=== PATIENT | female | born 1935 | race Caucasian/White ===

== ENCOUNTER 2024-04-09 22:17 | Observation (INO) | payer MEDICARE, SELFPAY ==
--- NOTE | ~2024-04-09 | MR_ITS ---
EXAMINATION: MR brain/brain stem wo/w con DATE: 04/10/2024 11:37 INDICATION: Altered mental status TECHNIQUE: Magnetic resonance imaging (MRI) of the brain and brainstem was performed without intraven ous contrast. Sequences included sagittal and axial T1-weighted SE, axial diffusion-weighted FS SE, a xial T2*-weighted GRE, axial T2-weighted FLAIR Propeller, and axial T2-weighted Propeller. Apparent d iffusion coefficient (ADC) maps were created. 13 cc MultiHance administered intravenously. COMPARISON: CT dated 04/10/2024. FINDINGS: Mild generalized atrophy. There are scattered mild periventricular and subcortical white ma tter changes, most likely related to small vessel ischemic disease (microangiopathy). No abnormal con trast enhancement. No ventriculomegaly or midline shift. No acute infarction, hemorrhage, mass or mas s effect. Structures of the posterior fossa including 7/8th cranial nerve complexes are normal. 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 Orbits are symmetric without disconjugate gaze. Paranasa l sinuses are unremarkable. Midline sagittal images demonstrate a normal corpus callosum and craniove rtebral junction. No abnormality of the sella turcica. IMPRESSION: 1. No acute intracranial abnormality. 2: Chronic age-related findings. Reviewed, dictated and finalized at location B.
--- NOTE | ~2024-04-09 | CT_ITS ---
EXAMINATION: CT brain wo con DATE: 04/10/2024 01:04 INDICATION: Altered mental status TECHNIQUE: Computed tomography (CT) of the head was performed without intravenous contrast. The dose- length product was 756.67 mGy-cm. Automated exposure control and iterative reconstruction technique were employed. COMPARISON: None FINDINGS: Generalized atrophy. No ventriculomegaly or midline shift. Basilar cisterns are patent. Nor mal conde-white differentiation. No acute intracranial hemorrhage, infarction, mass or mass effect. Th ere are scattered mild periventricular and subcortical white matter changes, most likely related to s mall vessel ischemic disease (microangiopathy). No depressed skull fractures. Paranasal sinuses and m astoids are pneumatized. IMPRESSION: 1. No acute intracranial abnormality. Reviewed, dictated and finalized at location B.
[2024-04-09 22:34] VITALS: PULSE 92; RESP 20; TEMP 36.6; O2SAT 99
--- NOTE | 2024-04-09 22:47 | ECG_ITS ---
Test Date: 2024-04-09 22:44:01 Measurements Intervals [place] Rate: 79 P: 52 MT: 142 QRS: 28 QRSD: 101 T: 45 QT: 378 QTc: 435 Interpretive Statements SINUS RHYTHM SUPRAVENTRICULAR BIGEMINY BORDERLINE ST ABNORMALITY- LATERAL LEADS BASELINE ARTIFACT- I, II, III, AVR, AVL, AVF, V1-V6 ABNORMAL ECG No previous ECG available for comparison Electronically Signed On 04-13-2024 14:41:19 CDT by Cm Flores D.O.
[2024-04-09 22:49] VITALS: BP 200/69
--- NOTE | 2024-04-09 22:54 | PC.NURSE ---
Damian - Betina Rhoades
[2024-04-09 23:00] LABS: Basophils Percent Auto 0.5 % (0.2-1.2); Eosinophils Absolute Auto 0.1 K/mm3 (0-0.3); Eosinophils Percent Auto 0.8 % (0-4.4); Hematocrit 37.5 % (37.0-47.0); Immature Granulocyte Absolute 0.04 K/mm3 (0.00-0.031); Immature Granulocyte Percent A 0.5 % (0-0.5); Lymphocytes Absolute Auto 1.17 K/mm3 (0.9-3.2); Lymphocytes Percent Auto 13.7 % (18.3-44.2); Mean Corpuscular HGB Conc 34.7 g/dl (32-36); Mean Corpuscular Hemoglobin 32.2 pg (26-34); Mean Corpuscular Volume 92.8 fl (80-100); Mean Platelet Volume 8.6 fl (7.4-10.4); Monocytes Absolute Auto 0.7 K/mm3 (0.1-0.6); Monocytes Percent Auto 8.2 % (2.6-8.5); Neutrophils Absolute Auto 6.5 K/mm3 (1.3-6.7); Neutrophils Percent Auto 76.3 % (45.5-73.1); Platelet Count Result 304 k/mm3 (150-375); Red Blood Count 4.04 M/mm3 (4.2-5.4); Red Cell Distribution Width 13.1 % (11.5-14.5); White Blood Count 8.5 K/mm3 (4.5-10.0)
[2024-04-09 23:09] LABS: Alanine Aminotransferase 21 U/L (6-35); Albumin Level 4.7 g/dL (3.5-5.1); Alkaline Phosphatase 85 U/L (38-126); Anion Gap 11 mmol/L (4-12); Aspartate Amino Transferase 42 U/L (14-36); Bilirubin,Total 0.5 mg/dL (0.2-1.3); Blood Urea Nitrogen 27 mg/dL (7-17); Calcium 9.8 mg/dL (8.4-10.2); Carbon Dioxide 23 mmol/L (22-30); Chloride 95 mmol/L (98-107); Estimated CRCL calculation 34 ml/min; Estimated Glomerular Filt Rate 59; Glucose 129 mg/dL (65-110); Sodium 129 mmol/L (137-145)
[2024-04-09 23:10] LABS: INR 0.9; Prothrombin Time 12.7 Seconds (11.1-14.7)
[2024-04-09 23:44] LABS: Appearance Urine Clear (Clear); Bilirubin Urine Negative (Negative); Blood Urine Negative (Negative); Color Urine Yellow (Yellow); Glucose Urine UA Negative (Negative); Ketones Urine Negative (Negative); Leukocyte Esterase Ur Negative LEU/UL (Negative); Nitrate Urine Negative (Negative); Protein Urine Negative (Negative); Urobilinogen Urine 0.2 mg/dL (<2.0)
--- NOTE | 2024-04-09 23:59 | ED.AMS ---
HPI - Altered Mental Status General Chief Complaint: Altered Mental Status Stated Complaint: AMS Time Seen by Provider: 04/09/24 23:28 Source: patient and EMS Mode of arrival: EMS Limitations: altered mental status History of Present Illness HPI narrative: This is a 88 year old female that presents to the ER for altered mental status. Patient was reportedly driving in circles around [place]. She was supposed to be driving to [place] to visit her daughter. Was eventually pulled over by police. She was pressing the off button to her car instead of the blinker. She also tried putting in her phone code and got it wrong so many times that she was locked out of her phone for an hour. Patient has no complaints currently. Reports a similar occurrence recently and she was treated for a UTI. Review of Systems Review of Systems: ROS unobtainable: Yes unobtainable due to mental status PMFSH Past Medical History Medical History (Updated 04/10/24 @ 03:34 by Idania Hurt PA-C) History of lupus Social History Social History (Updated 04/10/24 @ 00:57 by Idania Hurt PA-C) Smoking status: Never smoker Exam Narrative: GENERAL: Elderly, well-nourished, and in no acute distress. HEAD: Normocephalic, atraumatic. EYES: PERRLA and EOMI. ENT: Nares clear, no rhinorrhea or epistaxis. Mucous membranes moist. Oropharynx without tonsillar hypertrophy exudate or other lesions. Bilateral TMs pearly conde non-bulging NECK: Supple. No adenopathy or masses. No JVD CHEST: Clear to auscultation. No respiratory distress. No wheezes rales or rhonchi HEART: Regular rate and rhythm. No murmur heard. Normal peripheral pulses. EXTREMITIES: Normal range of motion. No edema. Strength equal in bilateral upper and lower extremities (5/5) SKIN: Warm, dry, no rash. NEURO: No focal deficits. Alert and oriented x3. Cranial nerves 2-12 grossly intact PSYCH: Normal mood and affect Course Course Emergency Course: Patient updated on her workup and recommendation for admission Consultations Consultation #1: Spoke with hospitalist about patient and workup who accepts admission. Will order MRI Date: 04/10/24 Vital Signs Vital signs: Vital Signs Temperature 97.9 F 04/09/24 22:34 Pulse Rate 92 04/09/24 22:34 Respiratory Rate 20 04/09/24 22:34 Pulse Oximetry 99 04/09/24 22:34 Oxygen Delivery Room Air 04/09/24 22:34 Temperature 97.9 F 04/09/24 22:34 Pulse Rate 92 04/09/24 22:34 Respiratory Rate 20 04/09/24 22:34 Blood Pressure 200/69 H 04/09/24 22:49 Pulse Oximetry 99 04/09/24 22:34 Oxygen Delivery Room Air 04/09/24 22:50 MDM - Altered Mental Status MDM Narrative Medical decision making narrative: Patient presents to the ER for confusion. Patient was meant to be driving to [place] to visit her daughter was pulled over by [place] police department as she was driving very erratically. Blood pressure elevated at 200 upon arrival. This down-trended without intervention. Blood pressure now 170s-180s systolic. Other vitals are stable. No focal deficits noted on exam. CBC without concerning findings. Metabolic panel with hyponatremia with sodium of 129. Patient does report this is chronic for her. Urine without evidence of infection. CT brain without acute findings. Patient updated on her workup and recommendation for admission. Spoke with hospitalist about patient and workup who accepts admission. Will order MRI Differential Diagnosis Differential diagnosis: Likely altered mental status, delirium, dementia and other (UTI, dehydration) Lab Data Attestation: I reviewed the patient's lab results. 04/09/24 22:52 04/09/24 22:52 Labs: Lab Results 04/09/24 04/09/24 04/09/24 Range/Units 22:52 22:54 23:38 WBC 8.5 (4.5-10.0) K/mm3 RBC 4.04 L (4.2-5.4) M/mm3 Hgb 13.0 (12.0-15.0) g/dL Hct 37.5 (37.0-47.0) % MCV 92.8 (80-100) fl MCH 32.2 (26-34) pg
[2024-04-10] VITALS (36 sets, daily range): BP systolic 152–212; BP diastolic 46–153; PULSE 56–88; RESP 10–20; TEMP 36–36.4; O2SAT 89–100
[2024-04-10 00:01] LABS: Add Urine Microscopic? NO
--- NOTE | 2024-04-10 01:16 | PC.NURSE ---
pt asked if we could contact [facility] and see if they would cancel her room. per pt request this rn did notify the hotel of pt being here and she would call once discharged.
[2024-04-10] MEDS: SODIUM CHLORIDE 0.9% IV 500 ML 999 ML IV CONT (01:30)
[2024-04-10 02:54] LABS: Ethanol < 10 mg/dL (<10)
[2024-04-10 02:56] LABS: Amphetamine Screen Urine Negative (Negative); Barbiturate Screen Urine Negative (Negative); Benzodiazepines Screen Urine Negative (Negative); Cannabinoid Screen Urine Negative (Negative); Cocaine Screen Urine Negative (Negative); Methadone Screen Urine Negative (Negative); Opiate Screen Urine Negative (Negative); Phencyclidine Screen Urine Negative (Negative)
--- NOTE | 2024-04-10 06:01 | ADMGEN ---
This patient, Kimi Avendaño, was admitted to [facility] Surg Room 304-02. Patient/family oriented to hospital policies and general routines including ID bracelet, bed and alarms, visiting hours, pain management, procedures, bathroom and other care routines, personal items, smoking policy, room service/diet, and visiting hours. Information on how to activate the Rapid Response Team has been discussed. Patient/Family are encouraged to report perceived risks to care and to ask questions if they do not understand what they are told or what they should do.
[2024-04-10] MEDS: METOPROLOL TARTRATE INJ 5 MG/5 ML VIAL IV PUSH ×2 (06:33→10:26)
[2024-04-10 08:00] LABS: Hematocrit 36.1 % (37.0-47.0); Hemoglobin 12.3 g/dL (12.0-15.0); Mean Corpuscular HGB Conc 34.1 g/dl (32-36); Mean Corpuscular Hemoglobin 31.6 pg (26-34); Mean Corpuscular Volume 92.8 fl (80-100); Mean Platelet Volume 8.4 fl (7.4-10.4); Platelet Count Result 294 k/mm3 (150-375); Red Blood Count 3.89 M/mm3 (4.2-5.4); Red Cell Distribution Width 13.2 % (11.5-14.5); White Blood Count 6.8 K/mm3 (4.5-10.0)
[2024-04-10 08:12] LABS: Anion Gap 8 mmol/L (4-12); Blood Urea Nitrogen 20 mg/dL (7-17); Calcium 9.3 mg/dL (8.4-10.2); Carbon Dioxide 27 mmol/L (22-30); Chloride 99 mmol/L (98-107); Estimated CRCL calculation 49 ml/min; Estimated Glomerular Filt Rate > 60; Glucose 108 mg/dL (65-110); Potassium 4.4 mmol/L (3.4-5.0); Sodium 134 mmol/L (137-145)
--- NOTE | 2024-04-10 09:25 | PM.IMHP ---
H&P: HPI History of Present Illness Date/Time: 04/10/24 09:25 Chief Complaint: Confusion Narrative: Kimi Avendaño is an 88-year-old female with a history of lupus, hyponatremia, CAD, colitis, recent right hip replacement 6 months prior who presented to the emergency department on 04/09/2024 accompanied by police department due to altered mental status. The patient lives in [place], [place] and was driving to [place], [place] as a stop over on her way to [place], [place] to visit her daughter. Patient states that her 3 daughters both were hesitant about having her make the drive, though she just saw her primary care provider 4 days prior and was told she was the healthiest patient for her age and there was no reason she could not drive. At some point in her drive, her GPS stopped working which may have been related to the [employer] outage that occurred on 04/09/2024. She then could not really get her phone to work at all and was having troubles with her turn signal. She pulled over at a rest stop in [place] at which time a rest stop attendant called police for assistance. Apparently every time the patient was trying to use her blinker, she was actually turning her car off by hitting the off button. She also apparently input her phone password incorrectly so many times that she was locked out for 1 hour. The patient admits to being ?totally confused but believes her troubles were due to car issues and not user error. She reports that she had a UTI about 1 month ago for which she completed an unknown antibiotic and had complete resolution of her symptoms. She did not have any urinary symptoms at that time but did have confusion which she states promptly resolved with treatment. At the time of my evaluation today, she admits to being confused. She denies forgetfulness or other memory issues. She does complain of a headache. She denies nausea, vomiting, fever, chills, abdominal pain, chest pain, palpitations, shortness of breath. Denies dysuria or hematuria. She does endorse dizziness and lightheadedness upon standing. She lives at home and is independent in her daily living. She has been using a cane for the past 6 months since her hip replacement. She knows that her blood pressure often runs high and she states she has white coat syndrome, therefore monitors her blood pressure at home and states that is typically well controlled. She also admits that she has had issues with low sodium in the past and knows that her sodium levels on admission were low. She is slightly off topic during exam and when she was trying to show me her phone, she handed me her tele box. She denies any history of drug use or alcohol use. She states her daughter is on her way from [place] to see her. She did give me permission to contact her daughter for further information, though she did not know her phone number. RN at bedside provided number, though I was unable to reach her daughter, Nadja, and left a voicemail. The patient does have a quite detailed typed report of her medical history with her and some information is supplemented from this. ER evaluation: On arrival, BP elevated to 200/69, additional vital signs stable, afebrile, white blood cell count 8.5, hemoglobin 13, sodium slightly decreased at 129, creatinine 0.9, electrolytes within normal limits, lactic acid 1.0, UA completely unremarkable, urine drug screen negative, ethyl alcohol <10. Head CT within normal limits. Blood pressure trended down to 170 systolic without intervention. Noted to have no focal neurologic deficits on exam. Review of Systems Review of Systems: All systems reviewed & are unremarkable except as noted in HPI and below PMFSH Past Medical History Medical History (Updated 04/10/24 @ 09:45 by Ioana Walters PA-C) History of lupus History of myocardial infarction History of pericarditis History of shingles Surgical History Surgical History (Updated 04/10/24 @
[2024-04-10] MEDS: CHOLECALCIFEROL 5,000 UNITS TABLET 10000 UNITS PO (10:25)
[2024-04-10] MEDS: OMEGA 3 POLYUNSAT FATTY ACIDS 1 GM CAP PO (10:25)
[2024-04-10] MEDS: ASCORBIC ACID 500 MG TABLET 1000 MG PO (10:26)
[2024-04-10] MEDS: ZINC SULFATE 220 MG CAPSULE PO (10:26)
[2024-04-10] MEDS: VITAMIN B COMPLEX CAPSULE 1 CAP PO (10:26)
[2024-04-10 10:33] LABS: Ammonia < 9 umol/L (9-30)
--- NOTE | 2024-04-10 10:54 | PC.NURSE ---
Patient's watch, necklace, and wedding ring placed in a cup labeled with patient sticker. Placed at bedside in patient's belongings bag per patient request.
[2024-04-10 11:16] LABS: Thyroid Stimulating Hormone Reflex 0.928 uIU/mL (0.465-4.68)
[2024-04-10 12:00] LABS: Folic Acid > 20.0 ng/mL (2.76->20); Vitamin B12 > 1000.0 pg/mL (239-931)
[2024-04-10] MEDS: hydrALAZINE HCL 20 MG/ML VIAL 10 MG IV PUSH (17:09)
--- NOTE | 2024-04-10 18:18 | WPDNEURCNPN ---
Assessment and Plan Assessment and plan (1) Minimal cognitive impairment: Code(s): G31.84 - Mild cognitive impairment of uncertain or unknown etiology Status: Acute Assessment and Plan: it is difficult to draw any definitive conclusions based upon a single examination such as this. MRI of the brain and serum B12 and folate and other lab data were within normal limits. Urine examination did not show any abnormalities. She told me she has had a urinary tract infection a month ago and she was confused. She has had episodes of low serum sodium in the past. She seems to very health conscious and used to run marathons at 1 time. Plan the patient seems to be stable from neurologic point of view at this time. If her family members accompany her and drive her around till they feel secure and thereafter have her follow up with Neurology in her local area in 2-3 weeks time and thereafter. Equally to see if she is developing any underlying dementia may be beneficial. T Consult date: 04/10/24 HPI: Kimi Avendaño is a 88 year old female Brought to the hospital by police from a nearby service area because he was confused and to she was using her car on oxygen place of the single. She was traveling from [facility] to her daughter in [place]. She has 3 daughters. She states that she has a 15 or so grandchildren. She used to run a marathon and has been in good health. She takes her vitamins. In the past she has had low serum sodium. She was admitted to hospital month ago because he got confused and was found to have urinary tract infection. She has not had any problems thereafter. She does live by herself and manages her own affairs fairly well. Here in the hospital her behavior has been found to be fair and no additional new Symptoms have been reported. The no prior history of stroke or head trauma or febrile illness in the past week or so. Review of Systems Review of Systems: The patient states that she has been on steroids on and off because of lupus. She was on steroid for almost a year at 1 time. However she is not on any steroid or any other medication for lupus at this time. All systems reviewed & are unremarkable except as noted in HPI and below PMFSH Past Medical History Medical History (Updated 04/10/24 @ 18:24 by Babatunde Toro MD) History of lupus History of myocardial infarction History of pericarditis History of shingles Minimal cognitive impairment Surgical History Surgical History H/O cataract removal with insertion of prosthetic lens (~2006) H/O cervical discectomy (~1979) H/O repair of right rotator cuff (~2011) History of appendectomy (~1960) History of cholecystectomy (~1999) History of hysterectomy for benign disease (~1960) Secondary to endometriosis History of inguinal herniorrhaphy (~1959) History of right hip replacement (~2022) Family History Family History Father Stomach ulcer Tuberculosis Mother Hypertension Glaucoma Daughter Hypertension Social History Social History Social History: Patient lives at home independently in [place], [place]. Uses a cane for ambulation. She is a never smoker/drinker and no history of drug use. Her daughter Nadja is her surrogate decision maker. She is a full code. Smoking status: Never smoker Second hand tobacco smoke exposure: Yes (as a child) Alcohol intake: never Substance use: never Substance use type: does not use Do You Feel Safe in your Home?: Yes Lack of Transportation: No Lack of Food: Never True Current Housing: I Have Housing Concerned About Future Housing: No Difficulty Paying Gas/Electric Bills: No Difficulty Paying for Meds: No Currently Unemployed: No Education: Bachelor's Degree Difficulty w/ Childcare or F
[2024-04-11] VITALS: PULSE 62
[2024-04-11 04:00] VITALS: BP 125/52; PULSE 58; PULSE 61; RESP 16; TEMP 36.2; O2SAT 99
[2024-04-11 07:29] LABS: Hematocrit 34.9 % (37.0-47.0); Hemoglobin 11.7 g/dL (12.0-15.0); Mean Corpuscular HGB Conc 33.5 g/dl (32-36); Mean Corpuscular Hemoglobin 31.3 pg (26-34); Mean Corpuscular Volume 93.3 fl (80-100); Mean Platelet Volume 8.9 fl (7.4-10.4); Platelet Count Result 312 k/mm3 (150-375); Red Blood Count 3.74 M/mm3 (4.2-5.4); Red Cell Distribution Width 13.2 % (11.5-14.5); White Blood Count 6.4 K/mm3 (4.5-10.0)
[2024-04-11 07:56] LABS: Alanine Aminotransferase 18 U/L (6-35); Albumin Level 3.8 g/dL (3.5-5.1); Alkaline Phosphatase 61 U/L (38-126); Anion Gap 6 mmol/L (4-12); Aspartate Amino Transferase 34 U/L (14-36); Blood Urea Nitrogen 17 mg/dL (7-17); Calcium 9.1 mg/dL (8.4-10.2); Carbon Dioxide 26 mmol/L (22-30); Chloride 101 mmol/L (98-107); Estimated CRCL calculation 43 ml/min; Estimated Glomerular Filt Rate > 60; Glucose 89 mg/dL (65-110); Potassium 3.9 mmol/L (3.4-5.0); Sodium 133 mmol/L (137-145)
[2024-04-11 08:01] VITALS: PULSE 66; RESP 20; O2SAT 99
[2024-04-11] MEDS: ASCORBIC ACID 500 MG TABLET 1000 MG PO (09:27)
[2024-04-11] MEDS: VITAMIN B COMPLEX CAPSULE 1 CAP PO (09:27)
[2024-04-11] MEDS: ZINC SULFATE 220 MG CAPSULE PO (09:27)
[2024-04-11] MEDS: CHOLECALCIFEROL 5,000 UNITS TABLET 10000 UNITS PO (09:27)
[2024-04-11] MEDS: OMEGA 3 POLYUNSAT FATTY ACIDS 1 GM CAP PO (09:27)
[2024-04-11 12:00] VITALS: BP 124/47; PULSE 75; RESP 18; TEMP 35.9; O2SAT 100
--- NOTE | 2024-04-11 13:52 | PM.IMPN ---
Progress Note: A&P Assessment and Plan (1) Altered mental status: Qualifiers: Altered mental status type: unspecified Qualified Code(s): R41.82 - Altered mental status, unspecified Code(s): R41.82 - Altered mental status, unspecified Status: Acute Assessment and Plan: Acute mental status change. Found to be driving erratically and had some confusion of events leading up to hospitalization. Head CT & MRI with no acute findings, though MRI brain did show an old cerebellar infarct. Laboratory workup unrevealing. UA without concerns for infection. Urine drug screen and ethyl alcohol levels negative. Neurologic exam unremarkable Awaiting brain MRI. --Neurology consulted, appreciate recommendations -- TSH, B12, folate, ammonia all normal (2) Hypertension: Code(s): I10 - Essential (primary) hypertension Status: Acute Assessment and Plan: BP markedly elevated on arrival up to 212/72. Yesterday blood pressure fluctuated from 170-210. Only received one dose of IV metoprolol. Patient reported having a headache yesterday. Continue to monitor BP trends closely. Was started on metoprolol 5 mg q4h IV prn --BP 124/52 at 4am, 124/47 at noon. --patient also reports acute elevation of blood pressure during event a month ago during episode of confusion, though records are not available --Ptatient reports that she has had trouble tolerating multiple medications for blood pressure (beta myron due to low heart rate, HCTZ due to low sodium). Blood pressure currently controlled. Follow up with PCP. Recommended frequent blood pressure checks at home until follow up with PCP (3) Hyponatremia: Code(s): E87.1 - Hypo-osmolality and hyponatremia Status: Acute Assessment and Plan: Sodium levels low on arrival at 129. Likely due to dehydration. Received 1 L of IV fluids in the ER. Sodium now improved, 134 today. 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 Family coming to pick her up this afternoon. --Start ASA given old infarct on brain MRI, also hx HI per patient --Defer statin to PCP --Blood pressure normalized. Unclear cause of blood pressure elevations, possible stress induced. Patient will check blood pressures at home. Consider a PRN med or further workup. She reported she had a headache but does not have sweats or palpitations with this episodes. Tele showed irregular rate, atrial arrhythmia, but not afib. Per patient she has been told she has had aflutter previously but not aflutter currently. --Follow up with PCP, outpatient neurology in 2-3 weeks Time Spent With Patient Time: 75 minutes. Saw patient twice Subjective Date/time seen: 04/11/24 13:52 Interval history: Feeling better today. Alert and oriented x4, back to baseline. Knitting. Reports some chronic problems with balance, patient thinks may have started about 4 years ago. MRI showed an old cerebellar infarct, patient unaware of that finding Review of Systems Review of Systems: Had a headache yesterday, resolved. No headache today. All systems reviewed & are unremarkable except as noted in HPI and below Exam Narrative: General: Well-nourished, well-appearing 88-year-old female, sitting up in bed, comfortable, NARD Neuro: awake, alert and oriented x3, speech clear, CN II-XII intact, strength 5/5 throughout, sensation intact, no pronator drift, bilateral engineering mgr strength equal, able to perform rapid alternating movements, though has some difficulty with following
--- NOTE | 2024-04-11 14:25 | PM.DS ---
DS: Admitting Diagnosis Discharge Date 04/11/24 Admitting Diagnosis Altered Mental Status Hypertensive urgency DS: Discharge Diagnosis Discharge Diagnosis (1) Altered mental status: Qualifiers: Altered mental status type: unspecified Qualified Code(s): R41.82 - Altered mental status, unspecified Code(s): R41.82 - Altered mental status, unspecified Status: Acute (2) Hypertensive urgency, malignant: Code(s): I16.0 - Hypertensive urgency Status: Acute Plan Follow up with PCP, Neurology. Started aspirin. Needs close follow up for blood pressures. Check sodium in 1-2 weeks DS: Summary Hospital Course Reason for hospitalization: Patient was admitted for evaluation of altered mental status Hospital Course: Altered mental status type. Acute change. Found to be driving erratically and had some confusion of events leading up to hospitalization. Head CT & MRI with no acute findings, though MRI brain did show an old cerebellar infarct. At risk for PRES given elevated blood pressures and lupus cerebritis with hx of lupus but mental status normalized quickly and no imaging findings. Laboratory workup unrevealing, sodium slightly low, BUN slightly high. UA without concerns for infection. Urine drug screen and ethyl alcohol levels negative. Neurologic exam unremarkable. Neurology consulted, appreciate recommendations. TSH, B12, folate, ammonia all normal. Unclear cause of acute change in mental status but patient noted that blood pressure was very elevated during her prior admission as well and she had no urinary symptoms so may have been asymptomatic bacteriuria? Records are not available. Patient will follow up with her PCP. Neurology saw during admission and recommended outpatient neurology follow up. Neurology note 04/10: The patient seems to be stable from neurologic point of view at this time. If her family members accompany her and drive her around till they feel secure and thereafter have her follow up with Neurology in her local area in 2-3 weeks time and thereafter. Equally to see if she is developing any underlying dementia may be beneficial. Hypertension: BP markedly elevated on arrival up to 212/72. Yesterday blood pressure fluctuated from 170-210. Only received one dose of IV metoprolol. Patient reported having a headache and treated for hypertensive urgency given altered mental status. Received 1 dose of IV metoprolol 5 mg and blood pressure improved. Did not need a second dose. Given intermittent blood pressure elevations, consider alternate causes if not already done. Though patient does not have classic symptoms of pheochromocytoma. No palpitations or sweating/flushing episodes. Day of discharge Blood pressure 124/52 at 4am, 124/47 at noon. Prior dose of IV metoprolol was 10 am the day before. She also reported acute elevation of blood pressure during event a month ago during episode of confusion, though records are not available. She reported difficulty tolerating multiple medications for blood pressure (beta myron due to low heart rate, HCTZ due to low sodium). Blood pressure currently controlled. Follow up with PCP. Recommended frequent blood pressure checks at home until follow up with PCP. Consider PRN medication. Intermittent elevations of blood pressure not a new issue for her. Unclear cause of blood pressure elevations, possibly stress induced vs other. Hyponatremia. Hypo-osmolality and hyponatremia. Sodium levels low on arrival at 129. Likely due to dehydration. Received 1 L of IV fluids in the ER. Sodium now improved, 134 today. Recheck labs in 1-2 weeks Hx Cerebellar infarct Hx VT Head CT and Brain MRI no acute findings. Old small right cerebellar infarct noted on MRI. Patient was not aware of an event but noticed difficulty with balance that started about 4 years ago. She is taking premarin --Started daily aspirin --Defer statin to primary Sinus arrhythmia--Heart rate ir
== END 2024-04-11 18:25 | disposition home or self-care (01) ==
LOC: ANHED 04-10 03:34 → ANH3MEDSUR 04-10 09:14
PROVIDERS: Physician Assistant; Admitting Provider Internal Medicine; Emergency Provider Physician Assistant; Visit Provider Nurse Practitioner Acute Care
DX: G31.84 Mild cognitive impairment of uncertain or unknown etiology (principal); E87.1 Hypo-osmolality and hyponatremia; I16.0 Hypertensive urgency; I10 Essential (primary) hypertension; M32.9 Systemic lupus erythematosus, unspecified; I25.10 Atherosclerotic heart disease of native coronary artery without angina pectoris; I25.2 Old myocardial infarction; Z96.641 Presence of right artificial hip joint; Z86.73 Personal history of transient ischemic attack (TIA), and cerebral infarction without residual deficits; Z79.899 Other long term (current) drug therapy
CPT/HCPCS: 36415; 70450; 70553; 80048; 80053; 80307; 81003; 82140; 82607; 82746; 83605; 84443; 85025; 85027; 85610; 85730; 93005; 96361; 96374; 96375; 96376; 99285; A9270; A9577; G0378; J0360; J7040